=== PATIENT | female | born 1940 | race Caucasian/White ===

== ENCOUNTER 2018-07-04 14:26 | Inpatient (IN) | payer OTHER, MEDICARE ==
[~2018-07-04] VITALS: Ht 160 cm; Wt 58.1 kg
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
[2018-07-04 14:29] VITALS: BP 115/60
[2018-07-04 15:26] LABS: ABSOLUTE NEUTROPHILS 3.4 thou/uL (1.4-8.2); EOSINOPHILS 2.7 % (0.0-3.0); HEMATOCRIT 35.5 % (37.0-47.0); HEMOGLOBIN 11.8 gm/dL (12.0-15.0); LYMPHOCYTES 29.7 % (24.0-44.0); MCHC 33.3 g/dL (28.0-37.0); MCV 93.3 fL (80.0-100.0); MONOCYTES 8.2 % (1.0-8.0); PLATELET COUNT 223 thou/uL (150-400); POLYS 58.4 % (36.0-66.0); RDW 13.6 % (10.5-14.5); WBC 5.7 thou/uL (4.0-11.0)
[2018-07-04 15:47] LABS: CREATININE 1.2 mg/dL (0.6-1.0); POTASSIUM 3.8 mmol/L (3.5-5.1)
[2018-07-04] MEDS ORDERED: NEURONTIN 400400 M1 PO (15:50)
[2018-07-04] MEDS ORDERED: VIMPAT200 MG PO ×2 (15:51→19:22)
[2018-07-04] MEDS ORDERED: ONFI10 MG PO (15:52)
[2018-07-04] MEDS ORDERED: KEPPRA 500 MG500 M1 PO ×2 (15:52→19:25)
[2018-07-04 15:53] LABS: ALBUMIN 3.8 g/dL (3.4-5.0); TOTAL BILIRUBIN 0.3 mg/dL (<0.1-1.0); TOTAL PROTEIN 7.5 g/dL (6.4-8.2)
[2018-07-04] MEDS ORDERED: TURMERIC500 M2 PO (15:54)
[2018-07-04] MEDS ORDERED: [UNRECOGNIZED DRUG - OTHER] (15:55)
[2018-07-04] MEDS ORDERED: SEROQUEL 50 MG50 MG PO (15:55)
[2018-07-04] MEDS ORDERED: LEXAPRO 10 MG T10 M1 PO (15:56)
[2018-07-04] MEDS ORDERED: CATAPLEX (15:56)
[2018-07-04] MEDS ORDERED: VITAMIN D3400 UNIT PO (15:56)
[2018-07-04] MEDS ORDERED: [UNRECOGNIZED DRUG - OTHER] (15:57)
[2018-07-04] MEDS ORDERED: SAW PALMETTO 1160 MG PO (15:57)
[2018-07-04] MEDS ORDERED: [UNRECOGNIZED DRUG - OTHER] (15:57)
[2018-07-04] MEDS ORDERED: GLUCOSAMINE HC500 MG PO (15:58)
[2018-07-04] MEDS ORDERED: BACOPA COMPLEX (15:59)
[2018-07-04] MEDS ORDERED: MELATONIN3 MG PO (15:59)
[2018-07-04] MEDS ORDERED: [UNRECOGNIZED DRUG - OTHER] (15:59)
[2018-07-04] MEDS ORDERED: [UNRECOGNIZED DRUG - OTHER] (15:59)
[2018-07-04] MEDS ORDERED: TYLENOL325 MG PO (16:00)
[2018-07-04] MEDS ORDERED: ULTIMATE OMEGA (16:00)
[2018-07-04] MEDS ORDERED: SYNTHROID25 MC1 PO (16:02)
[2018-07-04 17:12] VITALS: BP 115/60
[2018-07-04 17:15] LABS: URINE BILIRUBIN NEGATIVE (Negative); URINE BLOOD NEGATIVE (Negative); URINE CLARITY CLEAR; URINE COLOR YELLOW; URINE GLUCOSE-RANDOM* NEGATIVE (Negative); URINE KETONES NEGATIVE (Negative); URINE LEUKOCYTES NEGATIVE (Negative); URINE NITRITE NEGATIVE (Negative); URINE PROTEIN (DIPSTICK) NEGATIVE (Negative); URINE UROBILINOGEN 0.2 E.U./dl (0.2-1.0)
[2018-07-04 17:25] LABS: AMP/METHAMP Negative (Negative); BARBITURATES Negative (Negative); BENZODIAZEPINES POSITIVE (Negative); COCAINE Negative (Negative); METHADONE Negative (Negative); OPIATES Negative (Negative); PCP Negative (Negative)
[2018-07-04] MEDS ORDERED: KEPPRA 500 MG500 MG PO (19:25)
[2018-07-04] MEDS ORDERED: KEPPRA1000 MG PO (19:26)
[2018-07-04] MEDS ORDERED: SEROQUEL 50 MG50 M2 PO (19:29)
[2018-07-04] MEDS ORDERED: ELIQUIS5 MG PO (19:32)
[2018-07-04 20:46] VITALS: BP 103/43
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
--- NOTE | 2018-07-04 21:51 | NUR ---
Pt did get out of bed around 9pm, wandered the ornelas, went to the day room, drank some water and then returned to bed. Staff remained stand by assist. Pt does lurch when she ambulates.
--- NOTE | 2018-07-04 23:11 | NUR ---
Held MN neurontin, pt sleeping and sbp 100.
--- NOTE | 2018-07-04 23:29 | NUR ---
Pt's daughter was educated on meal times, visiting hours and admission packet, pt rights.
--- NOTE | 2018-07-05 03:33 | NUR ---
Hospitalist visited to see pt but she was asleep, updated regarding 2400 neurontin being held due to low sbp. Pt awakened 2 times in the night, one time to use restroom. Pt verbally re directed and re oriented to sleep.
[2018-07-05 05:21] VITALS: BP 107/54
[2018-07-05 07:30] VITALS: BP 113/53
[2018-07-05 11:36] VITALS: BP 113/53
--- NOTE | 2018-07-05 15:19 | EKG ---
[place] [address] [facility] [employer] [place] [address] ELECTROCARDIOGRAM REPORT Name: KURT MALDONADO Room #: 527B-B ADM IN M.R.#: [id number] ������������������ Admission: 07/04/18 ������������������ Attend Phys: Andrés Boss DO Discharge: ������������������ Date of : 40 Report #: [id number] ����������������������������������������������������������������� [id number] THIS REPORT FOR: //name// [facility] ED Test Date: 2018-07-04 Test Time: 15:28:23 Pat Name: KURT MALDONADO Department: Room: [facility] Gender: F Home Extension Agent: Olivia GRIER : 1940 Requested By: Shana Wayne Order Number: [id number] MD: Deshawn Burkett Measurements Intervals [place] Rate: 69 P: 73 NV: 235 QRS: 60 QRSD: 79 T: 55 QT: 404 QTc: 433 Interpretive Statements Sinus rhythm Prolonged NV interval Nonspecific ST-T wave changes No previous ECG available for comparison Electronically Signed On 07-05-2018 15:19:03 CDT by Deshawn Burkett [email or web address] ��������������������������������������������� <ELECTRONICALLY SIGNED> ���������������������������������������� By: Deshawn Burkett MD ��������������������������������������������� 07/05/18 1519 1528 1528 Deshawn Burkett MD /SHEFALI
--- NOTE | 2018-07-05 16:05 | NUR ---
ASSUMED CARE AT 0715 THIS MORNING. PT. ON THE UNIT ASKING TO SPEAK WITH THIS RN. WHILE TALKING TO HER SHE CONTINUALLY ASKED THE SAME QUESTIONS: WHY AM I HERE, WHY DID MY DAUGHTER DO ME SO DIRTY, I DON'T UNDERSTAND ANY OF THIS. THIS OCCURED SEVERAL TIMES TODAY (THE QUESTIONS/ANSWERING SESSION). PT. STATED CONTINUALLY SHE DOES NOT UNDERSTAND ANY OF IT. SHE INITIALLY QUIZZED THIS RN THIS MORNING WHEN GIVING MEDICATIONS: ARE YOU A NURSE, WHAT MAKES YOU QUALIFIED TO GIVE THOSE MEDICATIONS. AMBULATED WITHOUT DIFFICULTY PER HERSELF AND WITHOUT ASSISTANCE. DID TAKE HER MEDICATIONS WITHOUT PROBLEMS NOTED. ATE ALL MEALS ON THE UNIT. THIS AFTERNOON THE PATIENT GOT A CASE OF THE GIGGLES. DID ATTEND GROUPS WITHOUT PROBLEMS.
[2018-07-05 19:31] VITALS: BP 126/56
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
[2018-07-06 14:06] VITALS: BP 126/56
--- NOTE | 2018-07-06 14:17 | NUR ---
ASSUMED CARE AT 0715 TODAY. PT. UP AND DRESSED AND ON THE UNIT. SHE LISTS TO THE RIGHT WHILE WALKING. STAFF WATCHING PT. CAREFULLY. DR. GANDHI HERE AND ASKED IF PT. COULD GET A WALKER. PT. GIVEN WALKER. SHE CONTINUES TO BE EXTREMELY CONFUSED EVIDENCED BY HER TRYING TO PUT ON SEVERAL ARTICLES OF CLOTHING AT A TIME, UNABLE TO ORGANIZE HERSELF TO EAT WITHOUT STAFF TALKING HER INTO EATING AND ASSISTING HER IN DOING SO. SHE IS NOTED TO BE GOING INTO OTHERS ROOMS NEEDING CONSTANT REDIRECTION. STAFF WATCHING PT. CAREFULLY. THIS AM PT. WAS GIVEN HER MEDS. SHE SHOWED THIS RN THAT HER MEDS WERE TAKEN. BUT WHEN THIS ONLINE PUBLISHER WENT TO GET THE PT. FOR AM GROUP, SHE HAD 3 OF HER PILLS SITTING ONTOP OF HER FRUIT CUP. THIS ONLINE PUBLISHER GOT PT. TO TAKE HER MEDICATIONS ORDERED BY THE DR. WAS WASHED UP TODAY, BUT REFUSED SHOWER.
[2018-07-06 20:34] VITALS: BP 143/68
--- NOTE | 2018-07-07 01:47 | NUR ---
ASSUMED CARE @ 19:30. IN DAYROOM. TALKING TO PEERS AND THEN COMMIG TO THE NURSE REPORTING THAT SOMEONE NEEDS SOMETHING, CANNOT FORM WORDS TO FINISH THOUGHT. REDIRECTED, HOWEVER THIS OCCURS X6 THROUGHOUT THE EVENING. AWAKE, ALERT, BUT ORIENTED TO SELF ONLY. HRRR, S1S2 NOTED, LUNGS CTA, ABD NORMOACTIVE DENIES BM THIS MORNING. WILL CONTINUE TO MONITOR.
--- NOTE | 2018-07-07 10:53 | NUR ---
PULPWOOD CUTTER WAS NOTIFIED BY HEALTH DATA ADMINISTRATOR THAT PT WAS SITTING IN DAYROOM ON FLOOR ON BUTTOCKS IN FRONT OF CHAIR @ 1015. FALL WAS UNWITNESSED AND PATIENT REPORTS NO INJURIES. PATIENT STATES SHE WAS TRYING TO SIT DOWN, SHE DENIES ANY INJURIES NO COMPLAINTS OF PAIN. PATIENT SMILED AND SAID "SORRY." PATIENT WITH FALL BAND ON AND HAS NO SKID SOCKS ON PATIENT WAS REMINDED AGAIN TO ASK FOR ASSISTANCE WHEN GETTING UP, ETC. OS=448/67 P=66 IMMEDIATELY POST FALL. JACQUARD PLATE MAKER AND ALBERTO [employer] SOURCE INTELLIGENCE PRIVATE CLIENT ADVISOR NOTIFIED OF FALL. SAKSHI RN NOTIFIED PATIENT DAUGHTER OF FALL 1020 AND RN WAS INFORMED BY DAUGHTER "FALLS ARE NOT NEW TO MY MOTHER & SHE DOES NOT USE A WALKER AT HOME." ALBERTO WAS ON UNIT @ 1040 & ORDER WAS GIVEN FOR PHYSICAL THERAPY EVALUATION AGAIN DUE TO FALLS. FAMILY VISITING AT THIS TIME & PATIENT UP ON UNIT AMBULATING W/FAMILY. NO ACUTE DISTRESS NOTED.
--- NOTE | 2018-07-07 11:50 | NUR ---
PATIENT REASSESSED @1115 FOLLOWING FALL @ 1015 - UP AMBULATING IN HALLWAY W/DAUGHTER AND FAMILY HERE. PATIENT VOICING NO COMPLAINTS. ASSESSED BACK/BUTTOCKS (DAUGHTER PRESENT WELL) AND NO CUTS/BRUISING/ETC NOTED. PATIENT DENIED ANY PAIN. BP-114/62 P-64. DAUGHTER REQUESTED PATIENT WEAR WOOL SOCKS UNDER NON-SKID SLIPPERS TO KEEP FEET WARM. DAUGHTER ALSO REQUESTED PATIENT WEAR JEANS & HER JACKET DURING THE DAY TO KEEP HER WARM & FAMILY WILL DO PATIENT LAUNDRY. CUSTOMER SOLUTIONS ARCHITECT REVIEWED PATIENT MEDICATIONS W/DAUGHTER PER HER REQUESTS. PATIENT EATING LUNCH IN DAYROOM FOLLOWING FAMILY VISIT. WILL CONTINUE TO MONITOR.
--- NOTE | 2018-07-07 13:19 | NUR ---
REMAINS ON FALL RISK MONITORING & ATTENDING AFTERNOON GROUP @ CURRENT TIME.
--- NOTE | 2018-07-07 13:24 | NUR ---
ASSUMED CARE OF PATIENT AT 0700. PATIENT UP INDEPENDENTLY -FALL RISK PRECAUTION. PATIENT WAS USING WALKER UNTIL FALL 1015 & DAUGHTER REPORTED PATIENT DOES NOT USE A WALKER AT HOME AND PATIENT REPORTED THE WALKER MAKES HER STUMBLE. PATIENT CONFUSED & REQUIRES FREQUENT REDIRECTION. PATIENT THOUGHT SHE WAS IN [place] AND ORIENTED TO SELF BUT REORIENTED TO PLACE, DATE, & TIME. FAMILY VISITED AND PATIENT REPORTED SHE ENJOYED FAMILY.ATTENDED AFTERNOON GROUP. TOOK MEDICATIONS WITHOUT DIFFICULTY AND WAS COMPLIANT W/MEDS. NO ACUTE DISTRESS NOTED/VOICED.WILL CONTINUE TO MONITOR.
[2018-07-07 16:22] VITALS: BP 114/62
--- NOTE | 2018-07-07 16:38 | NUR ---
PATIENT DAUGHTER HERE TO VISIT. BROUGHT NEW CLOTHES (ADDED TO INVENTORY LIST). PATIENT ATTENDED GROUPS x2 THIS AFTERNOON AND SPENT TIME IN DAYROOM WORKING ON WORD SEARCH AND TALKING WITH PEERS. REMAINS PLEASANTLY CONFUSED.
[2018-07-07 20:38] VITALS: BP 125/56
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
--- NOTE | 2018-07-08 06:26 | NUR ---
THE PT SLEPT 9.4 HOURS LAST NIGHT. SHE TOOK HER EARLY AM MEDICATIONS WITHOUT ANY DIFFICULTY. THE HEEL SEAT FLAP STAPLER TOOK THE PT TO THE BATHROOM SO SHE COULD USE THE RESTROOM AND THEN BACK TO BED.
[2018-07-08 07:45] VITALS: BP 94/74
--- NOTE | 2018-07-08 13:53 | NUR ---
ASSUMED CARE AT 0715 TODAY. PT. UP ON THE UNIT. SHE CONTINUE TO LIST TO THE RIGHT AND HAS WALKER TO ASSIST WITH THIS. PT. FORGETS TO UTILIZE THE WALKER. SHE IS ON THE UNIT F0R GROUPS AND MEALS. AT 1300 SHE WAS STANDING IN THE CHOW TRYING TO PULL HER WALKER SIDEWAYS, AND FELL DOING SO. PT. DENIES PAIN. HER SITTING B/P WAS 151/92 P.72 PULZS 72, RESP 20 99% OXYGENATION ON RA, STANDING 123/[address] DUNN WAS ON THE UNIT AND NOTIFIED OF SAME. PT. GOTTEN UP AND SAT IN CHAIR THEN WENT TO ATTEND SW GROUP AT 1300.
[2018-07-08 14:00] VITALS: BP 151/92
[2018-07-08 14:01] VITALS: BP 123/66
[2018-07-08 14:10] VITALS: BP 123/66
[2018-07-08 19:37] VITALS: BP 100/60
--- NOTE | 2018-07-08 22:16 | NUR ---
Pt sitting on couch in day room with 1:1. Calm, smiling. Pt discussed how she had two children and that her picked out their names. She also discussed how her baby boy kicked alot. She repeated these conversations 3 times. Pt was assisted to bathroom and bed. Pt now asleep. Pt is not able to turn the walker when ambulating only able to move straight forward. Pt remains leaning to the right side.
[2018-07-08 23:07] VITALS: BP 100/60
[2018-07-09 05:55] VITALS: BP 115/60
[2018-07-09 07:30] VITALS: BP 101/54
--- NOTE | 2018-07-09 07:30 | NUR ---
UP TO DINNING ROOM VIA ESCORTED BY THERAPIST. PT HAS LEAN TO RT SIDE. NOTICED TO SCAB TO RT SIDE OF FORHEAD. PT DENIES ANY PAIN. LUNGS CLEAR. SWELLING TO RIGHT THIGH HAS DECREASED. NEEDS 1:1 FOR SAFETY DUE TO UNSTEADY GAIT.
--- NOTE | 2018-07-09 10:10 | NUR ---
ASSISTED PT BACK TO BED TO REST.
--- NOTE | 2018-07-09 11:50 | NUR ---
OBTAINED SITTING AND STANDING BP AND PULSE. SITTING 122/50, PULSE 66. STANDING 128/58, PULSE 73.
--- NOTE | 2018-07-09 12:00 | NUR ---
PT UP EATING LUNCH FROM TAKING A NAP. OBTAINED ORTHOSTATIC VS. CLIENT LEANED OVER TO RT WHEN VS TAKEN.
[2018-07-09 12:46] LABS: TSH 1.411 uIU/mL (0.358-3.740)
--- NOTE | 2018-07-09 16:06 | NUR ---
PT STILL RESTING WITH EYES CLOSED.
--- NOTE | 2018-07-09 17:12 | NUR ---
DAUGHTER CAME TO VISIT. GAVE INFORMATION ON NEW MED STARTED TODAY, MELO. DAUGHTER STATED THAT WHEN HER MOM DISCHARGES HERE, SHE IS GETTING HER BACK ON ALTERNATIVE MEDICATIONS.
[2018-07-09 19:59] VITALS: BP 124/47
--- NOTE | 2018-07-09 22:39 | NUR ---
Pt awakened approx 2215, running down ornelas, charging into peer room, grabbing and swining at nurse and aides. Yelling you are in my house what are you doing here. Pt not able to be redirected verbally. Pt focusing and lunging at particular nurse and aide, they were removed from eye sight. Security called for assistance. Pt yelling swinging and kicking at security BRINDA Steele notified prn IM Zyprexa ordered and given, security had to assist with complliance. Security remains at bedside, trying to encourage pt to rest in bed. Pt continues to yell at security to get out of her house, kicking and lunging at them. Pt did ask them if they knew the lords prayer, after they recited, she corrected them and then proceeded to state the prayer referencing the shadow of the valley. Security requesting restraints, material handling warehouse supervisor notified. MANAGER OF CUSTOMER BILLING called to see if she wanted restraints or seculsion, she ordered restraints. BRINDA stated hospitalist will need to do additional rounding and hospitalist notified. Nursing photographic supervisor updated regarding situation. [facility] admimistrator contacted to clarify location of restraints. Security obtaining and applying restraints. Pt continued to hit kick and bite at security.MANAGER OF CUSTOMER BILLING called 2245 per security request for more medication, no order at this time needing to wait for 30 minutes from initial administration and nursing photographic supervisor and security updated.
--- NOTE | 2018-07-09 23:14 | NUR ---
Pt continuing to yell thrash and kick in bed, hospitalist and nursing pattern grader supervisor on unit, pt saying get out of my house, BRINDA called and prn mitzi IM order provided.
--- NOTE | 2018-07-09 23:55 | NUR ---
Daughter called and updated regarding patients behaviors that lead to security placing pt in bilat wrist and ankle restraints along with medication provided. Daughter is wanting to come visit the pt. Bench Loom Weaver told pt that security or the circulation supervisor would call her. Security and Plug Paster updated regarding phone conversation with daughter and pts continued agitated and aggressive behaviors. Plug Paster provided daughter phone number.
--- NOTE | 2018-07-10 01:35 | NUR ---
Pt breifly rested approx 15 minutes, when 1:1 person was relieved pt started yelling,cursing, threatening to harm if we did not get out of her house, thrashing arms and legs. SUPERINTENDENT DRILLING AND PRODUCTION called to update regarding continued agitation. PRN Haldol order obtained.
--- NOTE | 2018-07-10 02:33 | NUR ---
Pt remains restless in bed kicking legs and arms, yelling get out of this house you bitch to one on one.
--- NOTE | 2018-07-10 02:50 | NUR ---
PROJECT INTERN called re restraint new order and release, pt still exhibiting aggressive behaviors but not as hostile. Plan is to release non dominant leg, if pt remains calm and verbally redirectable with release of leg will then release opposite arm. Hospitalist notified. Security notified, Furniture Assembler notified.
--- NOTE | 2018-07-10 03:14 | NUR ---
Security came to release left leg, pt was yelling at them get out of my house and gritting teeth, kicking and thrashing. Pt had been instructed prior to release what was going to happen and that security would release left leg, pt did not attempt to kick nurse but did yell through clenched teeth to get out of her house and don't give her anymore.
--- NOTE | 2018-07-10 03:48 | NUR ---
Pt released own r hand from restraint, pt following verbal instruction not yelling at nurses, not gritting teeth, not thrashing in bed, pt stated her arm is ok and let nurse hold it. Discussed with pt releasing another extremity with continued following of instruction.
--- NOTE | 2018-07-10 04:07 | NUR ---
0345 Dyllan Morgan did face to face with pt.
--- NOTE | 2018-07-10 04:50 | NUR ---
Security released RLE, pt had been educated prior to release of behavior expectations. Security came in pt did raise her voice and sit up but did not attempt to hit or kick security, she did move leg stating that the restraint was hers and they could not take it off. Daughter called and expressed concern that excavating supervisor did not call her as requested, he had been provided her number.
[2018-07-10 05:32] VITALS: BP 140/60
--- NOTE | 2018-07-10 05:37 | NUR ---
Remaining restraint removed by selina castañeda at 0510. Pt following verbal instructions, pt standing up straight, does lurch forward while walking, able to use walker in straight lines, remains on 1:1. Pt compliant with adl care, bp. Sitting in day room watching news. Prior to restraint removal pt was talking with sitter regarding the need to pray daily not just when you want something, voice was forced and irritable, but when sitter agreed with pt her voice slowed and calmed.
--- NOTE | 2018-07-10 06:03 | NUR ---
Pt requested to return to bed, she is sound asleep and not awakened by calling name. Since pt awake all night, not awakening to give am meds.
--- NOTE | 2018-07-10 10:56 | NUR ---
ASSUMED CARE AT 0715 THIS MORNING. PT. IN BED ASLEEP WITH COVER OVER HER HEAD. SHE WAS IRRITABLE WITH COMMUNICATIONS WRITER WHEN SHE ATTEMPTED TO TAKE KURT'S VITAL SIGNS. SHE WAS GIVE HER 0900 MEDICATIONS CRUSHED IN APPLE SAUCE. PT. WAS COOPERATIVE WITH MEDICATIONS. SHE GOT OUT OF BED ABOUT 1100. SHE WAS GIVEN AN VELCRO BELT WHILE SHE WAS SITTING SO SHE WOULD NOT GET UP AND FALL. SHE DEMONSTRAATED TO 3 STAFF THAT SHE COULD PULL THE BELT OFF BY HERSELF.
[2018-07-10 12:30] VITALS: BP 140/60
--- NOTE | 2018-07-10 15:08 | NUR ---
ASSUMED CARE AT 0715 TODAY. PT. ASLEEP AND ON 1:1. 1:1 D/C'D AT 1030 THIS MORNING. SHE DID NOT GET UP FOR BREAKFAST BUT DID GET UP FOR LUNCH. SHE APPEARS VERY TIRED WITH FLAT AFFECT. SHE STATED SHE WOULD NOT HURT ANYONE TODAY. SHE ATTENDED AFTERNOON GROUP. SHE WAS GIVEN A CHAIR ALARM IF SHE WOULD HAPPEN TO STAND SO SHE CANNONT/WILL NOT HARM HERSELF. DENIES SI/HI. DENIES AVH AT THIS WRITING.
[2018-07-10 15:26] VITALS: BP 128/63
[2018-07-10 19:10] LABS: SYPHILIS AB Negative (Negative)
[2018-07-10 19:24] VITALS: BP 106/53
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
--- NOTE | 2018-07-11 06:44 | NUR ---
ASSUMED CARE @ 19:30. UP IN W/C IN DINING ROOM, WATCHING TV. A&O X2 TO SELF, AND PERSONAL HISTORICAL DATES. BEHAVIOR CALM, COOPERATIVE AND WITHOUT ANXIETY. SLEPT 8 HOURS.
--- NOTE | 2018-07-11 08:30 | NUR ---
PT UP EATING BREAKFAST. NOTICED RUBBER MOLDER IS FEEDING PT. PT ABLE TO EAT, JUST SLOW. NEEDS ENCOURAGEMENT. FORGETS LIMITATIONS SUCH PICKING UP THINGS OFF FLOOR, BENDING OVER. PT STATED SHE WOULD LIKE TO LOOSE 12 POUNDS.
[2018-07-11 09:00] VITALS: BP 117/56
[2018-07-11 09:09] VITALS: BP 117/56
--- NOTE | 2018-07-11 12:13 | NUR ---
Recreational Therapy Weekly Progress Note Date of Admission: 07/04/18 Date of Activity Therapy Assessment: 07/07/18 Activity Goal: Patient will participate in 1 recreational therapy group per day until discharge. Initial Goal: Develop and state two positive coping skills to aid in frustration tolerance and impulse control. Weekly progress towards goal: On track Group participation level: Full Behaviors observed: Pt participates fully when in attendance. Pt is very socially interactive and at times becomes intrusive/interrupts staff and other pts with excitement to share stories/thoughts on group topic. Pt thought organization continues to be disoriented. No aggression during interactions. Plan: No change towards goal
--- NOTE | 2018-07-11 13:00 | NUR ---
PT STATED TO NURSE SHE HAS EPILEPSY. WANTED NURSE TO KNOW. STATED IT WOULD BE HELPFUL IF SHE TOLD PEOPLE. THIS NURSE STATED YES THAT IS VERY GOOD INFORMATION TO KNOW. PT WANTING TO KNOW ABOUT DIFFERENT MEDICATIONS FOR SEIZURES.
--- NOTE | 2018-07-11 17:14 | NUR ---
PT STATED SHE COUGHED AFTER DRINKING MILK, OR WATER, OR EATING BUTTER. PT NOT ABLE TO TELL NURSE WHAT SHE ATE/DRANK THAT MADE HER COUGH. SHE STATED THAT THE ICE WATER HAS CUCUMBER IN IT. NO CUCUMBER, JUST ICE. ALSO TORE UP USED [employer] BOX. PICKING THINGS UP OFF FLOOR.
[2018-07-11 20:29] VITALS: BP 132/53
--- NOTE | 2018-07-12 00:29 | NUR ---
PATIENTS CARES WERE ASSUMED AT SHIFT CHANGE. PATIENT WAS ASSESSED AND MEDS WERE PASSED. PATIENT BECAME VERY COMBATIVE AND PARANOID. THOUGHT SHE WAS HOME. SHE THINKS WE ARE STRANGERS IN HER HOUSE AT THE START OF SHIFT. SECURITY WAS CALLED AND TWO OFFICERS HELD PATIENT WHILE SHE RECIEVED A INJECTION TO CALM HER. THIS PATIENT WAS CALM AND NOT COMBATIVE BY 2200. HOURLY ROUNDING WAS DONE AND PATIENT DID APPER TO BE SLEEPING. THE BED IS IN A LOW AND LOCKED POSITION. THE BED ALARM IS ON.
--- NOTE | 2018-07-12 08:44 | NUR ---
Nutrition: assess d/t LOS. Pt admitted with agressive behavior; hx of seizure disorder and DVT. No new weight obtained since 07/04. Pt is eating well, 100% of most meals. Consider low nutrition risk at this time.
--- NOTE | 2018-07-12 09:05 | NUR ---
ASSUMED CARE AT 0715 TODAY. ECG DONE AND SHOWED AFIB. PT. NICOLE, RECEIVED GEODON LAST NOC. DR MENDENHALL (HOSPITALIST RESTAURANT RECRUITER) NOTIFIED WAS DR. DUNN. PT. HR 61 THIS MORNING AND UPON LISTENING TO PT. HER HR. WAS REGULAR. PT. UP IN W/C AND ON THE UNIT. SHE AT THIS WRITING IS PLEASANT AND COOPERATIVE. SHE IS SMILING AND EYES SHINNY (PER NORM).
--- NOTE | 2018-07-12 12:38 | NUR ---
ASSUMED CARE AT 0715 TODAY. PT. UP ON THE UNIT IN CLOTHING. IN REPORT IT WAS REPORTED THAT THE PATIENT'S CLOTHING SHOULD BE CHANGED EVERY DAY. PT. INFORMED OF SAME. HOSPITALIST ORDERED CARDIZEM AFTER EKG THIS MORNING. WAS IRRITABLE AND DELUSIONAL DURING AM GROUP THIS MORNING. TOOK PT. TO HER ROOM TO DE-ESCULATE HER. THEN SHE WAS RETURNED TO GROUP. PT. WAS BELIEVING ALL THE PEOPLE WERE CHILDREN AND THEY NEEDED EDUCATED AND WAS NOT BEING EDUCATIED. ATE MEALS ON THE UNIT. DENIES SI/HI, DENIES AVH.
[2018-07-12 12:47] VITALS: BP 130/55
[2018-07-12 21:12] VITALS: BP 135/53
--- NOTE | 2018-07-13 02:58 | NUR ---
ASSUMED CARE @ 19:15, NOTED TO BE IN THE DAY ROOM SITTING IN A W/C WITH VELCRO WAIST BAND AROUND WAIST. CHAIR ALARM IN W/C. CONFUSED AND SAYING THERE IS A BABY AT THAT TABLE. WHEN I EXPLAINED TO HER THAT I COULD NOT SEE A BABY, SHE SAID, "WELL, ITS NOT REALLY THERE". CONTINUES TO TRY AND MANAGE OTHER PATIENTS INTERACTION WITH THE NURSE, WITH THEIR SNACKS, WITH THEIR PEERS. BMP ORDERED FOR 07/13/18. DENIES SI, HI, DENIES SADNESS NOW, BUT SAYS WAS SAD EARLIER ON. STATES THAT WHEN SHE GETS NERVOUS, HER HANDS TREMBLE, SHE SHOWED ME HER TREMBLING HAND AND SAID, "LIKE THIS". HRRR, S1,S2 NOTED, LUNGS CTA, ABD SOUNDS NORMOACTIVE. 2100 MEDS TAKEN WHOLE WITH WATER. WILL CONTINUE TO MONITOR.
[2018-07-13 04:33] VITALS: BP 135/53
[2018-07-13 05:09] LABS: CALCIUM 9.8 mg/dL (8.5-10.1); CREATININE 0.8 mg/dL (0.6-1.0); POTASSIUM 3.8 mmol/L (3.5-5.1)
--- NOTE | 2018-07-13 08:24 | NUR ---
NEW ORDER AT THIS TIME PER CORDELL SCHROEDER, WAIST RESTRAINT RE: CONFUSION/FALLING.
--- NOTE | 2018-07-13 10:48 | NUR ---
ASSUMED PATIENT CARE AT 0730. PATIENT UP IN DR IN W/C. NEW ORDER PER JONATHAN SCHROEDER, WAIST RESTRAINT FOR CONFUSION AND AGITATION. HAPPY MOOD, SMILING, LAUGHING AT TELEVISION SHOW. COMPLIANT WITH MEDICATIONS, WHOLE WITH WATER. CONTINUE TO MONITOR.
--- NOTE | 2018-07-13 18:35 | EKG ---
[address] [address] ELECTROCARDIOGRAM REPORT Name: ERICAKURT Room #: 527B-B ADM IN M.R.#: [id number] ������������������ Admission: 07/04/18 ������������������ Attend Phys: Andrés Boss DO Discharge: ������������������ Date of : 40 Report #: [id number] ����������������������������������������������������������������� [id number] THIS REPORT FOR: //name// [facility] Test Date: 2018-07-12 Test Time: 07:32:40 Pat Name: KURT MALDONADO Department: Room: [facility] Gender: F Email Producer: ELENA : 1940 Requested By: Andrés Boss Order Number: [id number] MD: Deshawn Burkett Measurements Intervals Ronald Rate: 64 P: DC: QRS: 55 QRSD: 79 T: 56 QT: 438 QTc: 452 Interpretive Statements Atrial fibrillation versus sinus rhythm with sinus arrhythmia low voltage limb leads Compared to ECG 07/04/2018 15:28:23 Sinus rhythm may no longer present Electronically Signed On 07-13-2018 18:35:36 CDT by Deshawn Burkett [email or web address] ��������������������������������������������� <ELECTRONICALLY SIGNED> ���������������������������������������� By: Deshawn Burkett MD ��������������������������������������������� 07/13/18 1835 0732 0732 Deshawn Burkett MD /EPI
[2018-07-13 19:33] VITALS: BP 131/50
[2018-07-14] VITALS (7 sets, daily range): BP systolic 121–142; BP diastolic 50–69
--- NOTE | 2018-07-14 01:19 | NUR ---
ASSUMED CARE @ 19:15. UP IN THE DAY ROOM IN W/C WITH WAIST VELCRO ON TO KEEP PT FROM FALLING OUT OF HER CHAIR. ALARM PAD IN W/C SEAT. SMILING AND PLEASANT AFFECT NOTED. A&OX1. ORIENTED TO SELF ONLY. KNOWS BUT NOT TODAYS DATE. REPORTS THE YEAR IS 1993. DOES NOT KNOW THE MONTH OR DAY OF THE WEEK. ABD SOUNDS NOROACTIVE, REPORTS BMX1 THIS A.M. REPORTS THAT SHE FEELS "HAPPY" AND DOES NOT FEEL ANXIOUS. SHOWS ME THAT HER HANDS ARE NOT TREMBLING. DENIES PAIN AT THIS TIME. HAS CONVERSATIONS WITH STAFF AND PEERS THAT ONLY MAKE SENSE WITHIN ONES OWN FAMILY, SUCH "DO YOU WANT A COPY OF THE PHOTOGRAPHS OF GRANDMA AND GRANDPA?" 2100 MEDS GIVEN WITH PUDDING TO HELP HER SWALLOW. WILL CONTINUE TO MONITOR.
--- NOTE | 2018-07-14 16:46 | NUR ---
ASSUMED CARE AT 0715 TODAY. PT. UP IN HER W/C THIS MORNING FOR BREAKFAST. SHE HAS REMAINED VERY CONFUSED TODAY THINKING THIS CANAL EQUIPMENT MECHANIC WAS HER SISTER, AND PEERS WERE CHILDREN. SHE ATE MEALS ON THE UNIT AND WENT TO GROUP. SHE DID LAY DOWN THIS AFTERNOON FOR ABOUT 2 HOURS FOR A NAP. SHE GOT UP, PUTTING HER ONE SHOE ON THE WRONG FOOT AND NOT PUTTING ON THE OTHER SHOE AT ALL. SHE HAD ON A HADOOP ADMIN FUZZY JACKET AND REMOVED IT. SHE HAS BEEN INTRUSIVE GOING INTO PEOPLES ROOMS, ASKING THEM QUESTIONS THAT ACTUALLY MADE NO SENSE. PATIENTS LOOKING AT STAFF INQUISITIVELY. PT. NEEDING LOTS OF REDIRECTION FROM STAFF. SHE AMBULATED THIS AFTERNOON FOR ABOUT 2 HOURS THEN STARTED BECOMING UNSTEADY ON HER FEET. HER W/C WAS GOTTEN FOR HER AND SHE SAT IN IT FOR THE REMAINDER OF THE DAY. SHE WAS COOPERATIVE WITH MEDICATIONS.
--- NOTE | 2018-07-15 00:01 | EKG ---
[address] [place] [address] ELECTROCARDIOGRAM REPORT Name: KURT MALDONADO Room #: 527- ADM IN M.R.#: [id number] ������������������ Admission: 07/04/18 ������������������ Attend Phys: Andrés Boss DO Discharge: ������������������ Date of : 40 Report #: [id number] ����������������������������������������������������������������� [id number] THIS REPORT FOR: //name// [facility] Test Date: 2018-07-14 Test Time: 14:07:44 Pat Name: KURT MALDONADO Department: Room: [facility] Gender: F Sash Maker: MATTHEW : 1940 Requested By: Sharda Steele Order Number: [id number] MD: Deshawn Burkett Measurements Intervals [place] Rate: 68 P: 64 MA: 224 QRS: 74 QRSD: 85 T: 59 QT: 417 QTc: 444 Interpretive Statements Sinus rhythm Prolonged MA interval nonspecific st/t wave changes Compared to ECG 07/12/2018 07:32:[address]/t wave changes Electronically Signed On 07-15-2018 0:01:25 CDT by Deshawn Burkett [email or web address] ��������������������������������������������� <ELECTRONICALLY SIGNED> ���������������������������������������� By: Deshawn Burkett MD ��������������������������������������������� 07/15/18 0001 1407 140 Deshawn Burkett MD /EPI
--- NOTE | 2018-07-15 04:32 | NUR ---
PT MORE QUIET THIS PM, BUT REMAINS CONFUSED. HAD SNACK THIS PM AND TOOK MEDS AT HS. SLEPT WELL THROUGH THE NIGHT W/O INCIDENT, OR COMPLAINTS.
[2018-07-15 14:21] VITALS: BP 118/50
--- NOTE | 2018-07-15 16:03 | NUR ---
ASSUMED PATIENT CARE AT 0700. PATIENT UP IN D.R., WALKING FREELY. NURSE ASSISTED PATIENT TO HER ROOM, ASSISTED TO B.R., ASSISTED PATIENT WITH DRESSING AFTER SHE COMPLETED TOILETING. HAS BEEN COMPLIANT WITH ALL MEDICATIONS TO DATE. ATE 50-75% OF MEALS. ATTENDED ALL GROUP SESSIONS THIS DATE. IN W/C WITH LAP BELT, APPLIED WITH VELCRO, REMOVABLE BY PATIENT. HAPPY AFFECT, LABILE MOOD, NO BEHAVIORS. CONTINUE TO MONITOR.
[2018-07-15 16:11] VITALS: BP 118/50
[2018-07-15 20:14] VITALS: BP 116/44
--- NOTE | 2018-07-16 01:11 | NUR ---
SLIPPED UNDER LAP/WC ALARM X 2 AND GAIT IS NOTED TO BE UNSTEADY AT 1930-RAN AT NURSING STAFF,GRABBED U IFORM SHIRT FRONT STATING ANGRILY "GET OUT OF MY FATHERS HOUSE- HALDOL 5MG GIVEN PO X 1 AT APPROX 1945- WAS RESTLESS/UP AND DOWN FREQUENTLY BUT STAFF ESSENTIALLY 1;1 WITH PT UNTIL SETTLES IN BED TO PREVENT FALLS. TO BED AT APPROX 2200-CONFUSED SPEAKING FREQUENTLY ABOUT BEING IN HER PARENTS HOME RIGHT NOW AND INCORRECTLY IDENTIFYING PEERS AND STAFF VARIOUS FAMILY MEMBERS AND SIBLINGS BUT NO FURTHER PHYSICAL AGGRESSION.COMPLIENT WITH HS MEDS AFTER SEVERAL APPROACHES-WAS INITALLY TRYING TO GIVE THEM TO A PEER IN DAYROOM-THEN PLACED THEM IN A CUP AND PUT CUP UNDER BED IN ROOM. CLOSET
--- NOTE | 2018-07-16 08:13 | EKG ---
[address] [employer] [place] [address] ELECTROCARDIOGRAM REPORT Name: KURT MALDONADO Room #: 527B- ADM IN M.R.#: [id number] ������������������ Admission: 07/04/18 ������������������ Attend Phys: Andrés Boss DO Discharge: ������������������ Date of : 40 Report #: [id number] ����������������������������������������������������������������� [id number] THIS REPORT FOR: //name// [facility] Test Date: 2018-07-15 Test Time: 17:46:53 Pat Name: KURT MALDONADO Department: Room: [facility] Gender: F Children'S Entertainer: Marah SEQUEIRA : 1940 Requested By: Andrés Boss Order Number: [id number] MD: Storm Shah Measurements Intervals Addison Rate: 69 P: 49 NC: 214 QRS: 56 QRSD: 86 T: 77 QT: 415 QTc: 445 Interpretive Statements Sinus rhythm Atrial premature complex Borderline prolonged NC interval Borderline T wave abnormalities Baseline wander in lead(s) V2 Compared to ECG 07/14/2018 14:07:44 Atrial premature complex(es) now present T-wave abnormality now present ST (T wave) deviation no longer present Electronically Signed On 07-16-2018 8:12:51 CDT by Storm Shah [email or web address] ��������������������������������������������� <ELECTRONICALLY SIGNED> ���������������������������������������� By: Storm Shah MD ��������������������������������������������� 07/16/18 0812 1746 1746 Storm Shah MD /EPI
[2018-07-16 14:37] VITALS: BP 124/49
--- NOTE | 2018-07-16 17:46 | NUR ---
AAOX3 PLEASANTLY CONFUSED AT TIMES. ATE MEALS IN DINNING ROOM. ATTENDED GROUPS WITH GOOD PARTICIPATION. NO C/O PAIN. GOOD APPETIIE.
[2018-07-16 20:36] VITALS: BP 120/48
--- NOTE | 2018-07-17 00:36 | NUR ---
RESTLESS BUT DIRECTABLE UPON INITAIL ASSESSMENT THIS PM-GOING IN AND OUT OF OTHERS ROOMS,BENDING OVER IN CHAIR TO POINT THAT WHEELCHAIR WAS BEGINING TO TIP OVER- 1;1 WITH PT FROM APPROX [phone] AMBULATING IN HALLWAYS-ASSISTING INTO BEDCLOTHES-TOILETING,PROVIDING WITH HS SNACK AND HOT TEA,RUBBING BACK AND FEET UNTIL SHE REPORTED WAS READY TO LIE DOWN AT APPROX 2130-CONVERSATION MUCH OF PM FOCUSED ON VARIOUS FAMILY MEMBERS IE SISTERS,FATHER ETC AND BELIEVES SHE IS IN HER CHILDHOOD HOME AT THIS TIME, HAS BEEN COOPERATIVE WITH REQUESTS FROM STAFF AND NO VERBAL OR PHYSICAL AGITATION/AGGRESSION THIS PM. TO BED AND APPEARS TO SLEEP AT APPROX 2200
[2018-07-17 07:55] VITALS: BP 120/54
[2018-07-17 12:48] VITALS: BP 120/54
--- NOTE | 2018-07-17 15:47 | NUR ---
Patient Name: KURT MALDONADO Admission Date: 07/04/18 DISCHARGE PLAN: Pt will be discharge to [facility] Care Assessment: Pt was assessed by Dr. Boss. Pt was diagnosed with Major Neurcognitive Disorder with Behavior Disturbance. Level II Assessment: None Transportation: Pt will be transported to nursing facility by shiv Mann. Special Instructions/Notes: Dr. Boss spoke with the nursing facility that pt will need a memory care setting. DISCHARGE TO FACILITY: Assisted living Facility Facility: [facility] Fax: Address: [address] [place] [address] Contact Name: Kendra PCP: DIALLO Primary doctor Psychiatrist: DIALLO Facility Psychiatrist
--- NOTE | 2018-07-17 16:01 | NUR ---
KATIE and Dr. Boss attempted to make contact with Kendra from [facility] at 10:46am. KATIE provided contact number, and Dr. Boss provide cell phone number. KATIE attempted to reach Kendra at 1400, and was told by [facility] staff that she was in a meeting, and she will return. KATIE provided contact information. KATIE attempted to reach Kendra at 1549, and Israel stated that she not available, and she gave the previous message. KATIE notifed the facility that pt will be discharge on today, July 17, 2018 at 1630.
[2018-07-17] MEDS ORDERED: CARDIZEM CD 18180 M3 PO (16:03)
[2018-07-17] MEDS ORDERED: VIMPAT100 MG PO (16:08)
[2018-07-17] MEDS ORDERED: KEPPRA1000 MG PO ×2 (16:08→16:09)
[2018-07-17] MEDS ORDERED: KEPPRA 500 MG500 M1 PO (16:09)
[2018-07-17] MEDS ORDERED: ZIPRASIDONE HCL20 MG PO (16:10)
[2018-07-17] MEDS ORDERED: FLORINEF ACETA0.1 MG PO (16:10)
--- NOTE | 2018-07-17 18:07 | NUR ---
ASSUMED CARE AT 0715 TODAY. PT. UP ON UNIT FOR MEALS AND GROUPS. TOOK SHOWER. PUT ON NEW CLOTHES. HAS BEEN PLEASANT AND COOPERATIVE. NO SI/HI, OR AVH NOTED OR VOICED. DAUGHTER HERE AT 1630 TO GET PT. TO RETURN TO [facility] ([phone]). 1700 MEDS GIVEN TO HER BEFORE D/C. ALL D/C INSTRUCTION AND MEDICATIONS GONE OVER WERE ALL HER BELONGINGS BEFORE D/C. PT. WAS TAKEN TO ER ENTRANCE VIA W/C [facility]PAN[facility]. SHE WAS ASSISTED INTO THE CARE WITH HER BELONGINGS, SCRIPT AND D/C INSTRUCTIONS. THEY DROVE AWAY. ATTEMPT TO CALL [facility] BUT NO PERSON ANSWERED THE PHONE.
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
== END 2018-07-17 18:30 | DRG 57 ==
LOC: ER 14:26 → EROBS 17:03 → SBH 17:03 → EROBS 18:30 → SBH 18:48
PROVIDERS: Hospitalist; Physician Assistant; ADMIT Psychiatry & Neurology Psychiatry
DX: G30.9 Alzheimer's disease, unspecified (principal); F02.81 Dementia in other diseases classified elsewhere, unspecified severity, with behavioral disturbance; F01.51 Vascular dementia, unspecified severity, with behavioral disturbance; M06.9 Rheumatoid arthritis, unspecified; F41.9 Anxiety disorder, unspecified; F31.9 Bipolar disorder, unspecified; N18.9 Chronic kidney disease, unspecified; I12.9 Hypertensive chronic kidney disease with stage 1 through stage 4 chronic kidney disease, or unspecified chronic kidney disease; G40.909 Epilepsy, unspecified, not intractable, without status epilepticus; I95.1 Orthostatic hypotension; I48.0 Paroxysmal atrial fibrillation; Z86.718 Personal history of other venous thrombosis and embolism; Z88.6 Allergy status to analgesic agent; Z88.8 Allergy status to other drugs, medicaments and biological substances; Z90.710 Acquired absence of both cervix and uterus
CPT/HCPCS: 10880

== ENCOUNTER 2018-07-19 21:35 | Emergency (ER) | payer OTHER, MEDICARE ==
[~2018-07-19] VITALS: Ht 167.6 cm; Wt 61.7 kg
[~2018-07-19 21:35] MED LIST: BACOPA COMPLEX; CARDIZEM CD 18180 M3 PO; CATAPLEX; ELIQUIS5 MG PO; FLORINEF ACETA0.1 MG PO; GLUCOSAMINE HC500 MG PO; KEPPRA 500 MG500 M1 PO; KEPPRA 500 MG500 MG PO; KEPPRA1000 MG PO; LEXAPRO 10 MG T10 M1 PO; MELATONIN3 MG PO; NEURONTIN 400400 M1 PO; ONFI10 MG PO; SAW PALMETTO 1160 MG PO; SEROQUEL 50 MG50 M2 PO; SEROQUEL 50 MG50 MG PO; SYNTHROID25 MC1 PO; TURMERIC500 M2 PO; TYLENOL325 MG PO; ULTIMATE OMEGA; VIMPAT100 MG PO; VIMPAT200 MG PO; VITAMIN D3400 UNIT PO; ZIPRASIDONE HCL20 MG PO; [UNRECOGNIZED DRUG - OTHER]; [UNRECOGNIZED DRUG - OTHER]; [UNRECOGNIZED DRUG - OTHER]; [UNRECOGNIZED DRUG - OTHER]; [UNRECOGNIZED DRUG - OTHER]
[2018-07-19 22:24] LABS: HEMATOCRIT 33.3 % (37.0-47.0); HEMOGLOBIN 11.1 gm/dL (12.0-15.0); MCH 30.8 pg (26.0-34.0); MCHC 33.2 g/dL (28.0-37.0); MCV 92.8 fL (80.0-100.0); PLATELET COUNT 183 thou/uL (150-400); RBC 3.58 mil/uL (4.20-5.00); RDW 13.8 % (10.5-14.5); WBC 6.5 thou/uL (4.0-11.0)
[2018-07-19 22:29] LABS: URINE BILIRUBIN NEGATIVE (Negative); URINE BLOOD 2+ (Negative); URINE CLARITY CLEAR; URINE COLOR YELLOW; URINE GLUCOSE-RANDOM* NEGATIVE (Negative); URINE KETONES NEGATIVE (Negative); URINE NITRITE-REFLEX NEGATIVE (Negative); URINE PROTEIN (DIPSTICK) NEGATIVE (Negative); URINE UROBILINOGEN 0.2 E.U./dl (0.2-1.0)
[2018-07-19 22:32] LABS: URINE LEUKOCYTES-REFLEX 1+ (Negative)
[2018-07-19 22:40] LABS: ANION GAP 8 mmol/L (7-16); BUN 25 mg/dL (7-18); CALCIUM 9.5 mg/dL (8.5-10.1); CHLORIDE 105 mmol/L (98-107); CO2 30 mmol/L (21-32); CREATININE 1.1 mg/dL (0.6-1.0); GLUCOSE 97 mg/dL (74-106); POTASSIUM 3.7 mmol/L (3.5-5.1); SODIUM 143 mmol/L (136-145)
[2018-07-19 22:49] LABS: CASTS None Seen /LPF (None Seen); MUCUS None Seen strn/LPF (None Seen); SQUAMOUS 0-3 Few /LPF (0-3)
[2018-07-19 22:50] LABS: AMP/METHAMP Negative (Negative); BARBITURATES Negative (Negative); BENZODIAZEPINES POSITIVE (Negative); COCAINE Negative (Negative); CRYSTALS None Seen /LPF (None Seen); METHADONE Negative (Negative); OPIATES Negative (Negative); PCP Negative (Negative); URINE RBC 3-10 Few /HPF (0-2); URINE WBC-REFLEX 0-5 Rare /HPF (0-5)
[2018-07-19 22:50] LABS: ALBUMIN 3.4 g/dL (3.4-5.0); SALICYLATE < 2.8 mg/dL (2.8-20.0); SGOT 31 U/L (15-37); SGPT 29 U/L (30-65); TOTAL BILIRUBIN 0.2 mg/dL (<0.1-1.0); TOTAL PROTEIN 6.7 g/dL (6.4-8.2)
[2018-07-19 22:56] LABS: ATYPICAL LYMPHS 1 %; METAMYELOCYTES 1 %
--- NOTE | 2018-07-20 09:03 | EKG ---
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: WG : 1940 Requested By: Niles Lopez Order Number: [id number] MD: Mike Brown Measurements Intervals [place] Rate: 85 P: 35 [place]: 219 QRS: 62 QRSD: 84 T: 30 QT: 364 QTc: 433 Interpretive Statements Sinus rhythm with arrhythmia First-degree AV block Nonspecific ST segment abnormalities Compared to ECG 07/15/2018 17:46:53 No significant change Electronically Signed On 07-20-2018 9:03:13 CDT by Mike Brown [email or web address] ��������������������������������������������� <ELECTRONICALLY SIGNED> ���������������������������������������� By: Mike Brown MD ��������������������������������������������� 07/20/18 [id number] Mike Brown MD /SHEFALI
[2018-07-20 19:27] VITALS: BP 103/56
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
== END 2018-07-20 19:42 | disposition home or self-care (01) ==
LOC: ER 21:35
PROVIDERS: Emergency Medicine
DX: F03.91 Unspecified dementia, unspecified severity, with behavioral disturbance (principal); F01.50 Vascular dementia, unspecified severity, without behavioral disturbance, psychotic disturbance, mood disturbance, and anxiety; Z79.899 Other long term (current) drug therapy; Z88.5 Allergy status to narcotic agent; Z88.8 Allergy status to other drugs, medicaments and biological substances; Z91.018 Allergy to other foods; Z86.718 Personal history of other venous thrombosis and embolism